=== PATIENT | female | born 1935 | race Caucasian/White ===

== ENCOUNTER 2017-03-02 11:05 | Outpatient (CLI) | payer MEDICARE | END 2017-03-02 11:06 | disposition home or self-care (01) | LOC: LABBT 11:05 | PROVIDERS: ATTEND Orthopaedic Surgery | DX: Z01.812 Encounter for preprocedural laboratory examination (principal); G56.01 Carpal tunnel syndrome, right upper limb ==

== ENCOUNTER 2017-03-12 08:39 | Day surgery (SDC) | payer MEDICARE ==
[2017-03-02 11:29] VITALS: BMI 29.5
[2017-03-12] MEDS ORDERED: Clindamycin/D5W 600 mg/50 ml Premix Bag ONE (09:39)
[2017-03-12 09:42] LABS: #Basophils 0.1 thou/uL (0.0-0.2); #Eosinphils 0.1 thou/uL (0.0-0.7); #Lymphocytes 3.5 thou/uL (1.20-3.40); #Monocytes 0.8 thou/uL (0.11-0.59); #Neutrophils 4.7 thou/uL (1.40-6.50); %Eosinophils 1.1 % (0.0-10.0); %Lymphocytes 38.1 % (21.0-51.0); %Monocytes 8.9 % (0.0-10.0); Hematocrit 46.2 % (36.0-47.0); Mean Platelet Volume 6.8 fL (7.4-10.4); Red Blood Cell (RBC) Count 4.82 mill/uL (4.20-5.40); White Blood Cell (WBC) Count 9.3 thou/uL (4.8-10.8)
[2017-03-12] MEDS ORDERED: Lidocaine 1% w/Epinephrine 1:200K 30 ML VIAL ONE (10:53)
[2017-03-12] MEDS ORDERED: Propofol 200 MG/20 ML VIAL ONE (11:37)
--- NOTE | 2017-03-12 12:10 | OP ---
PREOPERATIVE DIAGNOSIS: Carpal tunnel syndrome, right. POSTOPERATIVE DIAGNOSIS: Carpal tunnel syndrome, right. SURGEON: Jhon Valentine M.D. ANESTHESIA: TIVA local. BLOOD LOSS: Minimal. SPECIMEN: None. DRAINS: None. COMPLICATIONS: None. PROCEDURE IN DETAIL: After appropriate consent was obtained, the patient was taken to the operating room where TIVA anesthesia was induced. The arm was prepped and draped in the sterile fashion. Th e arm was exsanguinated. The tourniquet was inflated to 250 mmHg. A longitudinal incision was made . Hemostasis obtained. Dissection was carried down to the transverse carpal ligament. The transve rse carpal ligament was incised. Hemostat was placed deep in the transverse carpal ligament. The k nife was used to cut down unto the ligament and hemostat. Care was taken to protect the contents of the carpal canal. Attention was then turned proximally. Metzenbaum scissors were used to release the carpal ligament into the forearm fascia. The carpal tunnel was palpated. There were no masses. The tourniquet was released. Hemostasis was obtained. Copious irrigation performed. The skin wa s closed with 4-0 Nylon. A sterile dressing was applied and the patient was placed in a splint. Th ere are no complications.
[2017-03-12] MEDS ORDERED: HYDROcodone/Acetaminophen 5/325 mg Tablet ONE (12:23)
== END 2017-03-12 12:45 | disposition home or self-care (01) ==
LOC: SDC 08:39
PROVIDERS: ATTEND Orthopaedic Surgery
PROC: 01N50ZZ Release Median Nerve, Open Approach (ICD-10-PCS; principal; 2017-03-12)
DX: G56.01 Carpal tunnel syndrome, right upper limb (principal); I10 Essential (primary) hypertension; E78.5 Hyperlipidemia, unspecified; M19.90 Unspecified osteoarthritis, unspecified site; Z88.0 Allergy status to penicillin; Z88.5 Allergy status to narcotic agent; Z88.1 Allergy status to other antibiotic agents; Z88.8 Allergy status to other drugs, medicaments and biological substances; Z79.899 Other long term (current) drug therapy; Z90.49 Acquired absence of other specified parts of digestive tract; Z98.890 Other specified postprocedural states
CPT/HCPCS: 36415; 85025; J2704; J3490

== ENCOUNTER 2017-08-11 10:57 | Outpatient (CLI) | payer MEDICARE | END 2017-08-11 10:58 | disposition home or self-care (01) | LOC: BICMAMMO 10:57 | PROVIDERS: ATTEND Family Medicine | DX: Z12.31 Encounter for screening mammogram for malignant neoplasm of breast (principal); R92.1 Mammographic calcification found on diagnostic imaging of breast | CPT/HCPCS: 77063; 77067 ==

== ENCOUNTER 2018-05-27 11:04 | Outpatient (CLI) | payer MEDICARE ==
--- NOTE | 2018-05-27 14:07 | MRI ---
PRE AND POSTCONTRAST ENHANCED MRI IMAGES CERVICAL SPINE: HISTORY: Cervical radiculopathy. FINDINGS: Pre- and postcontrast-enhanced MRI images cervical spine, M54.12. The patient received 9 mL of Multi Terry given IV. 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 C1-2: Unremarkable. C2-3: There is a minimal broad-based disk bulge. No significant degree of central neural foraminal narrowing seen. C3-4: There is a broad-based disk-osteophyte complex centrally resulting in mild compression of the thecal sac. There is moderate right and minimal left-sided neural foraminal narrowing due to uncover tebral osteophyte hypertrophy. C4-5: Disk desiccation is seen. There is disk space height loss with a broad-based disk-osteophyte complex centrally at C4-5 compressing the thecal sac resulting in a moderate degree of central stenos is. There is minimal right and moderate left-sided c4-5 neural foraminal narrowing due to uncoverteb ral osteophyte hypertrophy. C5-6: Disk desiccation is seen. There is a broad-based disk-osteophyte complex centrally compressin g the thecal sac resulting in a moderate degree of central stenosis. There is moderate bilateral nicola ral foraminal narrowing due to uncovertebral osteophyte hypertrophy. C6-7: Congenital fusion is seen. he neural foramen are patent. C7-T1: There is mild facet hypertrophy seen. The neural foramen are patent. T1-2: Unremarkable. 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 POS: SAEID
== END 2018-05-27 11:05 | disposition home or self-care (01) ==
LOC: SCSMRI 11:04
PROVIDERS: ATTEND Orthopaedic Surgery
DX: M54.12 Radiculopathy, cervical region (principal); N88.2 Stricture and stenosis of cervix uteri
CPT/HCPCS: 72156; 82565

== ENCOUNTER 2018-08-23 09:42 | Outpatient (CLI) | payer MEDICARE ==
--- NOTE | 2018-08-23 11:31 | MMO ---
Bilateral MAMMO Bilat Screen [facility]. CLINICAL HISTORY: Patient is 83 years old and is seen for screening. The patient has no family history of breast cancer. The patient has no personal history of cancer. VIEWS: The views performed were: bilateral craniocaudal with tomosynthesis and bilateral mediolateral oblique with tomosynthesis. FILMS COMPARED: The present examination has been compared to prior imaging studies performed at [facility] on 02/21/2013, 02/22/2014, 05/28/2015, 07/14/2016 and 08/11/2017. MAMMOGRAM FINDINGS: There are scattered fibroglandular densities. There are stable benign appearing calcifications seen in both breasts. There are also vascular calcifications. There are no suspicious masses, suspicious calcifications, or new areas of architectural distortion. IMPRESSION: THERE IS NO MAMMOGRAPHIC EVIDENCE OF MALIGNANCY. A ROUTINE FOLLOW-UP MAMMOGRAM IN 1 YEAR IS RECOMMENDED. THE RESULTS OF THIS EXAM WERE SENT TO THE PATIENT. ACR BI-RADS Category 2 - Benign finding MAMMOGRAPHY NOTE: 1. A negative mammogram report should not delay a biopsy if a dominant of clinically suspicious mass is present. 2. Approximately 10% to 15% of breast cancers are not detected by mammography. 3. Adenosis and dense breasts may obscure an underlying neoplasm.
== END 2018-08-23 09:43 | disposition home or self-care (01) ==
LOC: BICMAMMO 09:42
PROVIDERS: ATTEND Family Medicine
DX: Z12.31 Encounter for screening mammogram for malignant neoplasm of breast (principal)
CPT/HCPCS: 77063; 77067

== ENCOUNTER 2019-09-29 18:20 | Emergency (ER) | payer MEDICARE ==
--- NOTE | 2019-09-29 19:04 | RAD ---
LEFT WRIST: 09/29/19 Three views. HISTORY: Injury. FINDINGS: there is a predominantly transverse mildly impacted fracture involving the distal radius. Fracture li ne appears to extend to the articular surface and there is mild comminution. No significant displacem ent. Degenerative changes in the carpals and at the scaphotrapezium and at the first carpometacarpal joint . No other fracture identified. IMPRESSION: Fracture distal radius. POS: AGW
--- NOTE | 2019-09-29 19:11 | CT ---
Exam: Head CT without contrast HISTORY: Fall. Hit back of head. Proximal herself with left wrist. COMPARISON: Noncontrast head CT from CT angiogram 08/18/2011 FINDINGS: Hemorrhage: No intraparenchymal hemorrhage or extra-axial hematoma. Brain parenchyma: Cortical haynes-white matter differentiation is preserved. No mass effect or midline shift. Basilar cisterns are patent. Ventricular system: Ventricles and sulci are patent and symmetric. Calvarium: Intact. Sinuses and mastoid air cells: Adequate aeration. IMPRESSION: No intracranial post traumatic sequelae
--- NOTE | 2019-09-29 19:47 | RAD ---
Exam: One view pelvis HISTORY: Fall. Pain. Injury. FINDINGS: Bilateral hip prostheses without evidence of perihardware lucency or fracture. Visualized bony pelvis is intact. Symmetric obturator rings. Visualized sacral ala are preserved. IMPRESSION: No fracture.
[2019-09-29] MEDS ORDERED: traMADol HCl 50 MG TAB ONE (20:51)
== END 2019-09-29 21:27 | disposition home or self-care (01) ==
LOC: ERS 18:20
DX: S09.90XA Unspecified injury of head, initial encounter (principal); S52.502A Unspecified fracture of the lower end of left radius, initial encounter for closed fracture; I48.91 Unspecified atrial fibrillation; I10 Essential (primary) hypertension; W18.09XA Striking against other object with subsequent fall, initial encounter; Z79.899 Other long term (current) drug therapy
CPT/HCPCS: 70450; 72170

== ENCOUNTER 2020-01-30 10:13 | Outpatient (CLI) | payer MEDICARE ==
--- NOTE | 2020-01-30 11:06 | MMO ---
Bilateral MAMMO Bilat Screen [facility]. CLINICAL HISTORY: Patient is 85 years old and is seen for screening. The patient has no family history of breast cancer. The patient has no personal history of cancer. VIEWS: The views performed were: bilateral craniocaudal and bilateral mediolateral oblique. FILMS COMPARED: The present examination has been compared to prior imaging studies performed at [facility] on 05/28/2015, 07/14/2016, 08/11/2017 and 08/23/2018. This study has been interpreted with the assistance of computer-aided detection. MAMMOGRAM FINDINGS: There are scattered fibroglandular densities. Benign calcifications are noted bilaterally. There are no suspicious masses, suspicious calcifications, or new areas of architectural distortion. IMPRESSION: THERE IS NO MAMMOGRAPHIC EVIDENCE OF MALIGNANCY. A ROUTINE FOLLOW-UP MAMMOGRAM IN 1 YEAR IS RECOMMENDED. THE RESULTS OF THIS EXAM WERE SENT TO THE PATIENT. ACR BI-RADS Category 2 - Benign finding MAMMOGRAPHY NOTE: 1. A negative mammogram report should not delay a biopsy if a dominant of clinically suspicious mass is present. 2. Approximately 10% to 15% of breast cancers are not detected by mammography. 3. Adenosis and dense breasts may obscure an underlying neoplasm. Reported by: JOSH SCHAEFER MD Electonically Signed: [id number]
== END 2020-01-30 10:14 | disposition home or self-care (01) ==
LOC: BICMAMMO 10:13
PROVIDERS: ATTEND Family Medicine
DX: Z12.31 Encounter for screening mammogram for malignant neoplasm of breast (principal)
CPT/HCPCS: 77063; 77067

== ENCOUNTER 2021-01-30 09:58 | Outpatient (CLI) | payer MEDICARE | END 2021-01-30 09:59 | disposition home or self-care (01) | LOC: BICMAMMO 09:58 | PROVIDERS: ATTEND Family Medicine | DX: Z12.31 Encounter for screening mammogram for malignant neoplasm of breast (principal) | CPT/HCPCS: 77063; 77067 ==

== ENCOUNTER 2021-03-22 10:48 | Outpatient (CLI) | payer MEDICARE ==
[2021-03-22 13:40] LABS: #Basophils 0.1 10x3/uL (0.0-0.2); #Eosinphils 0.2 10x3/uL (0.0-0.5); #Monocytes 0.8 10x3/uL (0.0-1.1); #Neutrophils 2.5 10x3/uL (1.5-8.4); %Basophils 0.9 % (0.0-2.0); %Eosinophils 3.8 % (0.0-6.0); %Lymphocytes 42.8 % (18.0-47.0); %Monocytes 12.2 % (0.0-10.0); %Neutrophils 40.1 % (40.0-75.0); Hemoglobin 12.7 g/dL (12.0-15.5); Mean Corpuscular HGB CONC 31.8 g/dL (32.0-36.0); Mean Corpuscular Hemoglobin 30.3 pg (27.0-33.0); Mean Corpuscular Volume 95.5 fl (81.6-98.3); Mean Platelet Volume 11.1 fl (7.4-10.4); Platelet Count 237 10x3/uL (150-450); Red Blood Cell (RBC) Count 4.19 10x6/uL (3.90-5.03); White Blood Cell (WBC) Count 6.3 10x3/uL (3.5-10.5)
[2021-03-22 14:01] LABS: ALT (SGPT) 11 U/L (8-55); AST (SGOT) 19 U/L (5-34); Alkaline Phosphatase 68 U/L (40-110); Anion Gap 13 mmol/L (10-20); BUN (Urea Nitrogen) 13 mg/dL (9.8-20.1); Bilirubin, Total 0.9 mg/dL (0.2-1.2); Calc. Creatinine Clearance 0 mL/min (70-130); Carbon Dioxide 31 mmol/L (23-31); Chloride 101 mmol/L (98-107); Globulin 2.6 g/dL (2.4-3.5); Glucose 98 mg/dL (83-110); Potassium 4.1 mmol/L (3.5-5.1); Protein, Total 6.6 g/dL (5.8-8.1); Sodium 141 mmol/L (136-145)
[2021-03-23 14:28] LABS: SARS-CoV-2 PCR by NAA Not Detected (NotDetected)
== END 2021-03-22 10:49 | disposition home or self-care (01) ==
LOC: LABBT 10:48
PROVIDERS: ATTEND Internal Medicine Cardiovascular Disease
DX: Z01.812 Encounter for preprocedural laboratory examination (principal); Z20.822 Contact with and (suspected) exposure to COVID-19
CPT/HCPCS: 80053; 85025; U0003; U0005

== ENCOUNTER 2021-03-26 06:07 | Observation (INO) | payer MEDICARE ==
[2021-03-26] MEDS ORDERED: Fentanyl 100 MCG/2 ML VIAL ONE (07:22)
[2021-03-26] MEDS ORDERED: Aspirin Chewable 81 MG TAB ONE ×2 (07:49→08:11)
[2021-03-26] MEDS ORDERED: Heparin 10,000 UNITS/ 10 ML VIAL ONE ×2 (07:54→08:38)
[2021-03-26] MEDS ORDERED: Nitroglycerin 100MG/250ML BOT 250 ML ONE (07:54)
[2021-03-26] MEDS ORDERED: Clopidogrel Bisulfate 300 MG TAB ONE (08:32)
[2021-03-26] MEDS ORDERED: Lidocaine 1% (PF) 30 ML VIAL ONE (08:48)
[2021-03-26] MEDS ORDERED: Sodium Chloride 0.9% 1,000 ML IV SCH (09:45)
[2021-03-26] MEDS ORDERED: Iopamidol 370 76% 50 ML VIAL FS ONE (10:19)
[2021-03-26] MEDS ORDERED: Iopamidol 370 76% 100 ML VIAL ONE (10:19)
[2021-03-26 15:02] VITALS: BMI 29.3
[2021-03-26] MEDS: Acetaminophen ER (8hr) 650 MG TAB PO SCH (20:34)
[2021-03-26] MEDS ORDERED: Gabapentin 100 MG CAP PO SCH (21:00)
[2021-03-26] MEDS ORDERED: Melatonin 3 MG TAB PO SCH (21:00)
[2021-03-27 05:18] LABS: #Eosinphils 0.2 thou/uL (0.0-0.7); #Lymphocytes 2.1 thou/uL (1.20-3.40); #Monocytes 0.7 thou/uL (0.11-0.59); %Eosinophils 3.8 % (0.0-10.0); %Lymphocytes 41.7 % (21.0-51.0); %Monocytes 13.5 % (0.0-10.0); Hemoglobin 12.2 g/dL (12.0-16.0); Mean Corpuscular HGB CONC 33.1 g/dL (32.0-36.0); Mean Corpuscular Hemoglobin 32.2 pg (27.0-31.0); Mean Corpuscular Volume 97.5 fL (78.0-98.0); Mean Platelet Volume 7.8 fL (7.4-10.4); Platelet Count 197 thou/uL (130-400); RBC Distribution Width 11.2 % (11.5-14.5); Red Blood Cell (RBC) Count 3.78 mill/uL (4.20-5.40)
[2021-03-27 05:35] LABS: ALT (SGPT) 7 U/L (8-55); AST (SGOT) 16 U/L (5-34); Albumin 3.3 g/dL (3.4-4.8); Alkaline Phosphatase 59 U/L (40-110); Anion Gap 9 mmol/L (10-20); BUN (Urea Nitrogen) 9 mg/dL (9.8-20.1); Bilirubin, Total 1.2 mg/dL (0.2-1.2); Calc. Creatinine Clearance 55 mL/min (70-130); Calcium 9.2 mg/dL (7.8-10.44); Carbon Dioxide 33 mmol/L (23-31); Chloride 102 mmol/L (98-107); Globulin 2.6 g/dL (2.4-3.5); Glucose 99 mg/dL (83-110); Potassium 3.6 mmol/L (3.5-5.1); Protein, Total 5.9 g/dL (5.8-8.1); Sodium 140 mmol/L (136-145)
[2021-03-27 08:29] VITALS: BP 132/68; TEMP 97.8
[2021-03-27] MEDS ORDERED: Loratadine 10 MG TAB PO SCH (09:00)
[2021-03-27] MEDS ORDERED: Clopidogrel Bisulfate 75 MG TAB PO SCH (09:00)
[2021-03-27] MEDS ORDERED: Nebivolol HCl 2.5 MG TAB PO SCH (09:00)
[2021-03-27] MEDS ORDERED: Aspirin Chewable 81 MG TAB PO SCH (09:00)
[2021-03-27] MEDS: Acetaminophen ER (8hr) 650 MG TAB PO SCH (11:19)
== END 2021-03-27 11:45 | disposition home or self-care (01) ==
LOC: SDC 06:07 → 2SW 08:54
PROVIDERS: ADMIT Internal Medicine Cardiovascular Disease; ATTEND Internal Medicine Cardiovascular Disease
PROC: 027034Z Dilation of Coronary Artery, One Artery with Drug-eluting Intraluminal Device, Percutaneous Approach (ICD-10-PCS; principal; 2021-03-26)
DX: I25.10 Atherosclerotic heart disease of native coronary artery without angina pectoris (principal); E78.00 Pure hypercholesterolemia, unspecified; I11.0 Hypertensive heart disease with heart failure; I50.32 Chronic diastolic (congestive) heart failure; I48.20 Chronic atrial fibrillation, unspecified; M54.50 Low back pain, unspecified; E78.5 Hyperlipidemia, unspecified; Z88.0 Allergy status to penicillin; Z88.1 Allergy status to other antibiotic agents; Z88.5 Allergy status to narcotic agent; Z88.8 Allergy status to other drugs, medicaments and biological substances; Z79.890 Hormone replacement therapy; Z79.02 Long term (current) use of antithrombotics/antiplatelets; Z79.899 Other long term (current) drug therapy; Z79.01 Long term (current) use of anticoagulants
CPT/HCPCS: 76942; 80053; 85025; 85347 ×2; 93005; C1769; C9600; G0378 ×2; 36415; 92928; J1644; J2001; J3010; J7050; Q9967

== ENCOUNTER 2022-02-04 09:44 | Outpatient (CLI) | payer MEDICARE | END 2022-02-04 09:45 | disposition home or self-care (01) | LOC: BICMAMMO 09:44 | PROVIDERS: ATTEND Family Medicine | DX: Z12.31 Encounter for screening mammogram for malignant neoplasm of breast (principal) | CPT/HCPCS: 77063; 77067 ==

== ENCOUNTER 2022-03-28 15:23 | Emergency (ER) | payer MEDICARE ==
[2022-03-28] MEDS ORDERED: Orphenadrine Citrate 60 MG/2 ML VIAL ONE (16:42)
[2022-03-28] MEDS ORDERED: Morphine 4 MG/ML VIAL ONE ×2 (17:33→18:12)
[2022-03-28] MEDS ORDERED: Ondansetron PF 4 MG/2 ML Vial ONE (18:12)
[2022-03-28] MEDS ORDERED: Lidocaine 5% Patch TD SCH (19:15)
[2022-03-28 19:37] LABS: Bilirubin Negative (Negative); Blood, Urine Negative (Negative); Clarity Clear (Clear); Glucose, Urine (Dipstick) Normal (Negative); Ketone, Urine Negative (Negative); Leukocyte Negative Leu/uL (Negative); Nitrite Negative (Negative); Protein, Urine (Dipstick) Negative (Neg-Trace); Specific Gravity, Urine 1.007 (1.002-1.036); Urobilinogen Normal mg/dL (Less than 2); pH, Urine 7.5 (5.0-9.0)
[2022-03-29] MEDS ORDERED: Transdermal Patch Removal TOP SCH (07:00)
== END 2022-03-28 20:17 | disposition home or self-care (01) ==
LOC: ERS 15:23
DX: M62.830 Muscle spasm of back (principal); I10 Essential (primary) hypertension; Z79.01 Long term (current) use of anticoagulants
CPT/HCPCS: 81003; 96372; 96374; 96375; J2270; J2360; J2405

== ENCOUNTER 2022-04-11 10:01 | Outpatient (CLI) | payer MEDICARE | END 2022-04-11 10:02 | disposition home or self-care (01) | LOC: BICMAMMO 10:01 | PROVIDERS: ATTEND Family Medicine | DX: M81.8 Other osteoporosis without current pathological fracture (principal); Z91.89 Other specified personal risk factors, not elsewhere classified | CPT/HCPCS: 77080 ==

== ENCOUNTER 2023-02-22 22:47 | Emergency (ER) | payer MEDICARE ==
[2023-02-22] MEDS ORDERED: fentaNYL 50 mcg/mL 1 mL Vial ONE (23:51)
[2023-02-22] MEDS ORDERED: LORazepam 2 MG/ML SYR.(CARPUJECT) ONE (23:52)
[2023-02-23 00:18] LABS: #Basophils 0.1 thou/uL (0.0-0.2); #Monocytes 1.1 thou/uL (0.11-0.59); #Neutrophils 7.9 thou/uL (1.40-6.50); %Basophils 0.4 % (0.0-1.0); %Eosinophils 0.3 % (0.0-10.0); %Lymphocytes 20.8 % (21.0-51.0); %Monocytes 9.4 % (0.0-10.0); %Neutrophils 68.8 % (42.0-75.0); Hematocrit 38.1 % (36.0-47.0); Hemoglobin 12.1 g/dL (12.0-16.0); Mean Corpuscular HGB CONC 31.8 g/dL (32.0-36.0); Mean Corpuscular Hemoglobin 29.2 pg (27.0-31.0); Mean Platelet Volume 10.1 fL (7.4-10.4); Platelet Count 278 10x3/uL (130-400); RBC Distribution Width 12.3 % (11.5-14.5); Red Blood Cell (RBC) Count 4.14 mill/uL (4.20-5.40); White Blood Cell (WBC) Count 11.6 10x3/uL (4.8-10.8)
[2023-02-23 00:36] LABS: ALT (SGPT) 7 U/L (8-55); AST (SGOT) 15 U/L (5-34); Albumin 4.4 g/dL (3.4-4.8); Alkaline Phosphatase 51 U/L (40-110); Anion Gap 15 mmol/L (10-20); BUN (Urea Nitrogen) 18 mg/dL (9.8-20.1); Bilirubin, Total 0.4 mg/dL (0.2-1.2); Calc. Creatinine Clearance 0 mL/min (70-130); Calcium 9.2 mg/dL (7.8-10.44); Carbon Dioxide 28 mmol/L (23-31); Chloride 96 mmol/L (98-107); Estimated GFR 30; Globulin 2.7 g/dL (2.4-3.5); Glucose 139 mg/dL (83-110); Lipase 13 U/L (8-78); Potassium 3.8 mmol/L (3.5-5.1); Protein, Total 7.1 g/dL (5.8-8.1); Sodium 135 mmol/L (136-145)
[2023-02-23 01:29] LABS: Troponin I Less than 0.010 ng/mL (< 0.028)
[2023-02-23 01:36] LABS: Bilirubin Negative (Negative); Blood, Urine Negative (Negative); Glucose, Urine (Dipstick) >=1000 mg/dL (Negative); Ketone, Urine Negative (Negative); Leukocyte Negative (Negative); Nitrite Negative (Negative); Protein, Urine (Dipstick) Negative (Neg-Trace); Urobilinogen 0.2 mg/dL (Less than 2)
[2023-02-23 01:38] LABS: Bacteria/HPF None Seen HPF (None Seen); CAUTI Indications for Culture Pelvic or flank pain; RBC/HPF 0-3 HPF (0-3); Squamous Epithelial None Seen HPF (0-3); WBC/HPF 0-3 HPF (0-3)
[2023-02-23 01:42] LABS: Clarity Clear (Clear)
[2023-02-23 01:48] LABS: Urine Culture Reflex No No
== END 2023-02-23 04:23 | disposition home or self-care (01) ==
LOC: ERS 22:47
DX: M54.50 Low back pain, unspecified (principal)
CPT/HCPCS: 80053; 81001; 83690; 84484; 85025; 93005; J2060; J3010; 36415; 96374; 96375

== ENCOUNTER 2023-05-29 11:24 | Outpatient (CLI) | payer MEDICARE | END 2023-05-29 11:25 | disposition home or self-care (01) | LOC: BICMAMMO 11:24 | PROVIDERS: ATTEND Family Medicine | DX: Z12.31 Encounter for screening mammogram for malignant neoplasm of breast (principal) | CPT/HCPCS: 77063; 77067 ==

== ENCOUNTER 2023-12-02 09:57 | Emergency (ER) | payer MEDICARE ==
[2023-12-02 11:52] LABS: #Basophils 0.04 10x3/uL (0.0-0.2); %Basophils 0.7 % (0.0-1.0); %Eosinophils 1.2 % (0.0-10.0); %Lymphocytes 27.1 % (21.0-51.0); %Neutrophils 57.8 % (42.0-75.0); Hematocrit 41.2 % (36.0-47.0); Hemoglobin 12.6 g/dL (12.0-16.0); Mean Corpuscular HGB CONC 30.6 g/dL (32.0-36.0); Mean Corpuscular Hemoglobin 29.1 pg (27.0-31.0); Mean Corpuscular Volume 95.2 fL (78.0-98.0); Platelet Count 252 10x3/uL (130-400); RBC Distribution Width 13.7 % (11.5-14.5); Red Blood Cell (RBC) Count 4.33 mill/uL (4.20-5.40)
[2023-12-02 12:08] LABS: ALT (SGPT) 8 U/L (8-55); AST (SGOT) 19 U/L (5-34); Albumin 3.5 g/dL (3.4-4.8); Alkaline Phosphatase 55 U/L (40-110); Anion Gap 16 mmol/L (10-20); BUN (Urea Nitrogen) 25 mg/dL (9.8-20.1); Bilirubin, Total 0.8 mg/dL (0.2-1.2); Calc. Creatinine Clearance 0 mL/min (70-130); Calcium 9.5 mg/dL (7.8-10.44); Carbon Dioxide 27 mmol/L (23-31); Chloride 101 mmol/L (98-107); Estimated GFR 33; Globulin 3.3 g/dL (2.4-3.5); Glucose 96 mg/dL (83-110); Protein, Total 6.8 g/dL (5.8-8.1); Sodium 139 mmol/L (136-145)
[2023-12-02 12:14] LABS: Troponin I Less than 0.010 ng/mL (< 0.028)
[2023-12-02 13:15] LABS: Bacteria/HPF None Seen HPF (None Seen); Bilirubin Negative (Negative); Blood, Urine Negative (Negative); CAUTI Indications for Culture Dysuria,urgency,freq; Clarity Clear (Clear); Glucose, Urine (Dipstick) 500 mg/dL (Negative); Ketone, Urine Negative (Negative); Leukocyte Negative Leu/uL (Negative); Nitrite Negative (Negative); Protein, Urine (Dipstick) Negative (Neg-Trace); RBC/HPF 0-3 HPF (0-3); Specific Gravity, Urine 1.006 (1.002-1.036); Squamous Epithelial 0-3 HPF (0-3); Urobilinogen Normal mg/dL (Less than 2); WBC/HPF 0-3 HPF (0-3); pH, Urine 7.5 (5.0-9.0)
[2023-12-02 13:18] LABS: Urine Culture Reflex No No
== END 2023-12-02 13:34 | disposition home or self-care (01) ==
LOC: ERS 09:57
DX: S09.90XA Unspecified injury of head, initial encounter (principal); I10 Essential (primary) hypertension; I48.91 Unspecified atrial fibrillation; W19.XXXA Unspecified fall, initial encounter; Z55.6 Problems related to health literacy; Z79.82 Long term (current) use of aspirin; Z79.01 Long term (current) use of anticoagulants
CPT/HCPCS: 36415; 51701; 70450; 71045; 72125; 80053; 81001; 84484; 85025; 93005